=== PATIENT | male | born 1975 | race Caucasian/White ===

== ENCOUNTER 2020-11-12 13:12 | Emergency (ER) | payer OTHER ==
[~2020-11-12] VITALS: Ht 185.4 cm; Wt 111.4 kg
[2020-11-12] MEDS ORDERED: PANT40TA29 PO (13:24)
[2020-11-12] MEDS ORDERED: OXYC10TA12 PO (13:24)
[2020-11-12] MEDS ORDERED: VENTAER INH (13:24)
[2020-11-12] MEDS ORDERED: FAMO20TA PO (13:24)
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
[2020-11-12] MEDS ORDERED: PERCOCET 5MG/325MG TAB PO ONE (14:35)
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
[2020-11-12 15:28] VITALS: BP 140/82
== END 2020-11-12 15:45 | disposition home or self-care (01) ==
LOC: M ED 13:12
DX: S16.1XXA Strain of muscle, fascia and tendon at neck level, initial encounter (principal); M25.511 Pain in right shoulder; V43.62XA Car passenger injured in collision with other type car in traffic accident, initial encounter; Y92.9 Unspecified place or not applicable; Y93.9 Activity, unspecified; Y99.9 Unspecified external cause status; K21.9 Gastro-esophageal reflux disease without esophagitis; F12.10 Cannabis abuse, uncomplicated; M51.34 Other intervertebral disc degeneration, thoracic region; M47.812 Spondylosis without myelopathy or radiculopathy, cervical region